=== PATIENT | female | born 1970 | race Caucasian/White ===

== ENCOUNTER 2019-07-30 16:30 | Observation (INO) | payer OTHER ==
[2019-07-30] MEDS ORDERED: FENTANYL CITR 100 MCG/2 ML ONE ×2 (17:22→17:57)
[2019-07-30] MEDS ORDERED: MIDAZOLAM HCL 2 MG/2 ML INJ ONE (17:22)
[2019-07-30] MEDS ORDERED: NA CHLORIDE 0.9% 1,000 ML ONE (17:23)
[2019-07-30] MEDS ORDERED: ADENOSINE 6 MG/ 2ML VIAL IV ONE ×2 (17:23→17:36)
--- NOTE | 2019-07-30 17:28 | RAD REPORT ---
EXAM DESCRIPTION: Matty Single View07/30/2019 5:21 pm CLINICAL HISTORY: Palpitations COMPARISON: none FINDINGS: The lungs appear clear of acute infiltrate. The heart is mildly to moderately enlarged IMPRESSION: No acute abnormalities displayed
[2019-07-30] MEDS ORDERED: METOPROLOL TARTRATE 5 MG/5 ML INJ IV ONE ×2 (17:31→17:36)
[2019-07-30 17:36] LABS: Absolute Lymphocytes (CBC) 2.5 K/uL (0.7-4.9); Basophils % 1.2 % (0-1.3); Hematocrit 45.4 % (36.0-45.0); Lymphocytes % 40.5 % (15.3-44.8); MPV 8.2 fL (7.6-11.3); RBC Red Blood Cell Count 4.86 M/uL (3.86-4.86)
[2019-07-30 17:38] LABS: Protime INR 0.9
[2019-07-30 17:57] LABS: ALT/SGPT 30 U/L (12-78); AST/SGOT 21 U/L (15-37); Alkaline Phosphatase 130 U/L (45-117); BUN Blood Urea Nitrogen 18 mg/dL (7-18); Bicarbonate 26 mmol/L (21-32); Bilirubin Direct < 0.1 mg/dL (0-0.2); Bilirubin Total 0.4 mg/dL (0.2-1.0); Glucose Level 93 mg/dL (74-106); Magnesium 2.5 mg/dL (1.8-2.4); NT PRO-BNP 290 pg/mL (<125); Potassium 3.9 mmol/L (3.5-5.1); Protein, Total 7.4 g/dL (6.4-8.2); Sodium Level 143 mmol/L (136-145); Troponin (Emerg Dept Use Only) 0.08 ng/mL (0.0-0.045)
--- NOTE | 2019-07-30 18:09 | ER ---
Nurse's Notes [facility] Name: Lila Ba Age: 49 yrs Sex: Female : 1970 Arrival Date: 07/30/2019 Time: 16:39 Bed 3 Private MD: Diagnosis: Unspecified atrial fibrillation;Palpitations;Influenza due to certain identified influenza viruses Presentation: 07/29 16:45 Chief complaint: Patient states: This morning since 0600, I felt sweaty, back and neck ca1 pains, SOB on exertion. I went to the doctor in [place] and they diagnosed me with the Flu and they did an EKG that shows A-fib. They told me to come to the ER. Denies history of A-fib, any heart problems. Coronavirus screen: The patient has NOT traveled to a country currently being monitored by the CDC within the last 14 days. The patient has NOT had contact with any known and/or suspected case of coronavirus. Ebola Screen: Patient negative for fever greater than or equal to 101.5 degrees Fahrenheit, and additional compatible Ebola Virus Disease symptoms Patient denies exposure to infectious person. Patient denies travel to an Ebola-affected area in the 21 days before illness onset. No symptoms or risks identified at this time. Initial Sepsis Screen: Does the patient meet any 2 criteria? No. Patient's initial sepsis screen is negative. Does the patient have a suspected source of infection? No. Patient's initial sepsis screen is negative. Risk Assessment: Do you want to hurt yourself or someone else? Patient reports no desire to harm self or others. Onset of symptoms was July 30, 2019. 16:45 Method Of Arrival: Ambulatory ca1 16:45 Acuity: TAN 3 ca1 17:03 Acuity: TAN 2 ph ENROLLMENT REPRESENTATIVE: 16:49 LMP N/A - control method ca1 Historical: - Allergies: 16:49 No Known Allergies; ca1 - Home Meds: 16:49 None [Active]; ca1 - PMHx: 16:49 None; ca1 - PSHx: 16:49 ; Thyroidectomy; oophorectomy; ca1 - Immunization history:: Adult Immunizations up to date, Flu vaccine is up to date. - Social history:: Smoking status: Patient denies any tobacco usage or history of. Screenin:10 Abuse screen: Denies threats or abuse. Nutritional screening: No deficits noted. em Tuberculosis screening: No symptoms or risk factors identified. Fall Risk None identified. Assessment: 17:10 General: Appears in no apparent distress. comfortable, Behavior is calm, cooperative, em Denies fever. Pain: Denies pain. Neuro: Level of Consciousness is awake, alert, obeys commands, Oriented to person, place, time, situation, Appropriate for age. Cardiovascular: Reports palpitations, shortness of breath, Denies chest pain, Heart tones S1 S2 present Capillary refill < 3 seconds Patient's skin is warm and dry. Rhythm is atrial fibrillation. Respiratory: Reports shortness of breath on exertion Airway is patent Respiratory effort is even, unlabored, Respiratory pattern is regular, symmetrical. GI: Patient currently denies nausea, vomiting. Derm: Skin is intact, is healthy with good turgor, Skin is pink, warm \T\ dry. Musculoskeletal: Capillary refill < 3 seconds, Range of motion: intact in all extremities. 17:56 Reassessment: 2 nd synchronized cardioversion at 150 J, rhythm unchanged, A-fib at 138. em 18:05 General: Appears in no apparent distress. Behavior is calm, cooperative. em Cardiovascular: Denies chest pain, Capillary refill < 3 seconds Patient's skin is warm and dry. Rhythm is atrial fibrillation. Respiratory: Airway is patent Respiratory effort is even, unlabored, Respiratory pattern is regular, symmetrical. Musculoskeletal: Capillary refill < 3 seconds. Vital Signs: 16:45 BP 112 / 79; Pulse 79; Resp 18 S; Temp 97.2(O); Pulse Ox 98% on R/A; Weight 84.82 kg ca1 (R); Height 5 ft. 4 in. (162.56 cm) (R); Pain 0/10; 16:57 Pulse 163; ca1 17:20 BP 134 / 108; Pulse 156; Resp 20; Pulse Ox 99% on R/A; em 17:23 BP 121 / 57; Pulse 164; Resp 18 S; Pulse Ox 100% on R/A; em 17:28 BP 126 / 97; Pulse 160; em 17:30 BP 108 / 79; Pulse 147; em 17:36 BP 103 / 80; Pulse 139; em 17:45 BP 95 / 75; Pulse 138; em 17:55 BP 107 / 86; Pulse 134; Resp 16 S; em 18:00 BP 100 / 87; Pulse 128; Resp 14 S; em 18:29 BP 109 / 97; Pulse 140; Resp 18; Pulse Ox 100% on R/A; em 19:31 BP 106 / 74; Pulse 135; Resp 18; Temp 97.8; Pulse Ox 100% on R/A; rv 16:45 Body Mass Index 32.10 (84.82 kg, 162.56 cm) ca1 ED Course: 16:39 Patient arrived in ED. mr 16:48 Triage completed. ca1 16:49 Arm band placed on right wrist. ca1 16:57 EKG done, by ED staff, reviewed by Koko Zamorano MD. ca1 16:59 Samanta Singh FNP-C is PHCP. kb 16:59 Koko Zamorano MD is Attending Physician. kb 17:03 Yelena Champion, RN is Primary Nurse. ph 17:10 Patient has correct armband on for positive identification. Placed in gown. Bed in low em position. Call light in reach. Adult w/ patient. painter helper sign on. Pulse ox on. NIBP on. 17:10 Initial lab(s) drawn, by me, sent to lab. Inserted saline lock: 20 gauge in right em antecubital area, using aseptic technique. Blood collected. 17:21 XRAY Chest (1 view) In Process Unspecified. EDMS 17:49 Assist provider with cardioversion (synchronized) with pads, for treatment of A fib em with 150 joules Set up for procedure. Performed by Koko Zamorano MD Monitored with wool hat hydraulicker, pulse ox, Post procedure rhythm is A fib. Patient tolerated well. 18:08 Vu Salter MD is Hospitalizing Provider. kb 19:35 IV is patent, with fluids infusing freely, with good blood return, Patient admitted, IV rv remains in place. Administered Medications: 17:20 Drug: NS 0.9% 1000 ml Route: IV; Rate: 1000 ml; Site: right antecubital; em 18:00 Follow up: IV Status: Completed infusion; IV Intake: 1000ml em 17:25 Drug: Adenosine 12 mg Route: IVP; Site: right antecubital; em 17:26 Follow up: Response: No adverse reaction; Cardiac rhythm is unchanged em 17:30 Drug: Lopressor 5 mg Route: IVP; Site: right antecubital; em 17:35 Drug: Lopressor 5 mg Route: IVP; Site: right antecubital; em 17:37 Drug: Adenosine 12 mg Route: IVP; Site: right antecubital; em 17:38 Follow up: Response: No adverse reaction; Cardiac rhythm is unchanged em 17:43 Drug: Versed 4 mg Route: IVP; Site: right antecubital; em 19:15 Follow up: Response: No adverse reaction ph 17:45 Drug: fentaNYL (PF) 50 mcg Route: IVP; Site: right antecubital; em 19:16 Follow up: Response: No adverse reaction ph 17:48 Drug: fentaNYL (PF) 50 mcg Route: IVP; Site: right antecubital; em 19:16 Follow up: Response: No adverse reaction ph 17:53 Drug: fentaNYL (PF) 50 mcg Route: IVP; Site: right antecubital; em 19:16 Follow up: Response: No adverse reaction ph 18:43 Drug: Betapace 80 mg Route: PO; em 19:15 Follow up: Response: No adverse reaction ph 18:46 Drug: Lovenox 1 mg/kg Route: Sub-Q; Site: right lower abdomen; em 19:15 Follow up: Response: No adverse reaction ph Intake: 18:00 IV: 1000ml; Total: 1000ml. em Outcome: 18:08 Decision to Hospitalize by Provider. kb 19:34 Admitted to ICU accompanied by nurse, accompanied by tech, via stretcher, room 8, with rv chart, Report called to SEDA MEDINA 19:34 Condition: good 19:34 Discharge instructions given to patient, family, Instructed on the need for admit, Demonstrated understanding of instructions. 19:35 Patient left the ED. rv Signatures: Dispatcher [employer] Samanta Pollard, PLUMBING INSPECTOR-C PLUMBING INSPECTOR-Ckb Cast Loly YanezProsper, RN RN em Yelena Champion RN CAROL ph Jeff Lazaro RN RN rv Kathleen Chung RN RN ca1 Corrections: (The following items were deleted from the chart) 19:18 17:56 Reassessment: synchronized cardioversion at 150 J, rhythm unchanged, A-fib at 138 em em
--- NOTE | 2019-07-30 18:09 | EDPHYS ---
Physician Documentation [facility] Name: Lila Ba Age: 49 yrs Sex: Female : 1970 Arrival Date: 07/30/2019 Time: 16:39 Bed 3 Private MD: ED Physician Koko Zamorano HPI: 07/29 18:08 This 49 yrs old Female presents to ER via Ambulatory with complaints of AFIB. kb 18:08 The patient presents with a history of irregular heart beat. Context: The symptoms kb occur at rest. Onset: The symptoms/episode began/occurred this morning. Duration: The patient or guardian reports a single episode. Modifying factors: The symptoms are aggravated by nothing. The symptoms are alleviated by nothing. Associated signs and symptoms: The patient has no apparent associated signs or symptoms. Severity of symptoms: At their worst the symptoms were moderate in the emergency department the symptoms are unchanged. The patient has not experienced similar symptoms in the past. The patient has been recently seen by a physician:. Pt reports she woke up with fluttering in her chest this morning, went to work and has had the same feeling throughout the day with intermittent sweating. Went to [employer] at her job and was tested for the flu which was positive. Pt states they did an EKG after that and told her she had to come to the ER for a. fib. Denies any medical history, has never felt these symptoms before. PROCESS DEVELOPMENT CHEMIST: 16:49 LMP N/A - control method ca1 Historical: - Allergies: 16:49 No Known Allergies; ca1 - Home Meds: 16:49 None [Active]; ca1 - PMHx: 16:49 None; ca1 - PSHx: 16:49 ; Thyroidectomy; oophorectomy; ca1 - Immunization history:: Adult Immunizations up to date, Flu vaccine is up to date. - Social history:: Smoking status: Patient denies any tobacco usage or history of. ROS: 18:06 Constitutional: Negative for fever, chills, and weight loss, ENT: Negative for injury, kb pain, and discharge, Neck: Negative for injury, pain, and swelling, Respiratory: Negative for shortness of breath, cough, wheezing, and pleuritic chest pain, Abdomen/GI: Negative for abdominal pain, nausea, vomiting, diarrhea, and constipation, Back: Negative for injury and pain, MS/Extremity: Negative for injury and deformity, Skin: Negative for injury, rash, and discoloration, Neuro: Negative for headache, weakness, numbness, tingling, and seizure. 18:06 Cardiovascular: Positive for palpitations, sweating. Exam: 18:06 Constitutional: This is a well developed, well nourished patient who is awake, alert, kb and in no acute distress. Head/Face: Normocephalic, atraumatic. ENT: Nares patent. No nasal discharge, no septal abnormalities noted. Tympanic membranes are normal and external auditory canals are clear. Oropharynx with no redness, swelling, or masses, exudates, or evidence of obstruction, uvula midline. Mucous membranes moist. Neck: Trachea midline, no thyromegaly or masses palpated, and no cervical lymphadenopathy. Supple, full range of motion without nuchal rigidity, or vertebral point tenderness. No Meningismus. Chest/axilla: Normal chest wall appearance and motion. Nontender with no deformity. No lesions are appreciated. Respiratory: Lungs have equal breath sounds bilaterally, clear to auscultation and percussion. No rales, rhonchi or wheezes noted. No increased work of breathing, no retractions or nasal flaring. Abdomen/GI: Soft, non-tender, with normal bowel sounds. No distension or tympany. No guarding or rebound. No evidence of tenderness throughout. Back: No spinal tenderness. No costovertebral tenderness. Full range of motion. Skin: Warm, dry with normal turgor. Normal color with no rashes, no lesions, and no evidence of cellulitis. MS/ Extremity: Pulses equal, no cyanosis. Neurovascular intact. Full, normal range of motion. Neuro: Awake and alert, GCS 15, oriented to person, place, time, and situation. Cranial nerves II-XII grossly intact. Motor strength 5/5 in all extremities. Sensory grossly intact. Cerebellar exam normal. Normal gait. 18:06 Cardiovascular: Rate: tachycardic, Rhythm: irregularly irregular, Pulses: no pulse deficits are appreciated. 18:07 ECG was reviewed by the Attending Physician. Vital Signs: 16:45 BP 112 / 79; Pulse 79; Resp 18 S; Temp 97.2(O); Pulse Ox 98% on R/A; Weight 84.82 kg ca1 (R); Height 5 ft. 4 in. (162.56 cm) (R); Pain 0/10; 16:57 Pulse 163; ca1 17:20 BP 134 / 108; Pulse 156; Resp 20; Pulse Ox 99% on R/A; em 17:23 BP 121 / 57; Pulse 164; Resp 18 S; Pulse Ox 100% on R/A; em 17:28 BP 126 / 97; Pulse 160; em 17:30 BP 108 / 79; Pulse 147; em 17:36 BP 103 / 80; Pulse 139; em 17:45 BP 95 / 75; Pulse 138; em 17:55 BP 107 / 86; Pulse 134; Resp 16 S; em 18:00 BP 100 / 87; Pulse 128; Resp 14 S; em 18:29 BP 109 / 97; Pulse 140; Resp 18; Pulse Ox 100% on R/A; em 19:31 BP 106 / 74; Pulse 135; Resp 18; Temp 97.8; Pulse Ox 100% on R/A; rv 16:45 Body Mass Index 32.10 (84.82 kg, 162.56 cm) ca1 MDM: 17:00 Patient medically screened. kb 18:10 Data reviewed: vital signs, nurses notes. Data interpreted: Pulse oximetry: on room air kb is 98 %. Interpretation: normal. Counseling: I had a detailed discussion with the patient and/or guardian regarding: the historical points, exam findings, and any diagnostic results supporting the discharge/admit diagnosis, lab results, radiology results, the need for further work-up and treatment in the hospital. Physician consultation: Joao Gonzalez MD was called at 18:10, regarding consult, patient's condition, and will see patient in unit. 18:18 Physician consultation: Vu Salter MD was contacted at 18:19, regarding admission, to the ICU, patient's condition, in the emergency department to see patient at 18:19. 19:04 ED course: Pt presented in a.fib with rvr, pt reported fluttering in chest. Denied kb chest pain, shortness of breath. Dr Zamorano was consulted and came to room as well. Discussed cardioversion with pt, risks and benefits, pt signed consent. I answered questions that the pt and spouse had. Adenosine 12mg IV given without relief. Lopressor 5mg IV x2 given with no relief. Adenosine 12mg IV given with no relief. Pt then given conscious sedation with fentanyl and versed. Synchronized cardioversion administered at 150J without change. Synchronized cardioversion administered at 150J a second time without change. Dr Gonzalez consulted at that point. Recommended starting betapase and lovenox, then admitting. 03 17:00 Order name: Basic Metabolic Panel; Complete Time: 17:59 kb 07/29 17:00 Order name: CBC with Diff; Complete Time: 17:58 kb 07/29 17:00 Order name: LFT's; Complete Time: 17:59 kb 07/29 17:00 Order name: Magnesium; Complete Time: 17:59 kb 07/29 17:00 Order name: NT PRO-BNP; Complete Time: 17:59 kb 07/29 17:00 Order name: PT-INR; Complete Time: 17:58 kb 07/29 17:00 Order name: Troponin (emerg Dept Use Only); Complete Time: 17:59 kb 07/29 17:00 Order name: XRAY Chest (1 view); Complete Time: 17:58 kb 07/29 17:27 Order name: TSH; Complete Time: 19:03 bd 07/29 17:00 Order name: EKG; Complete Time: 17:01 kb 04 17:00 Order name: Cardiac monitoring; Complete Time: 18:13 kb 04 17:00 Order name: EKG - Nurse/Tech; Complete Time: 18:13 kb 07/29 17:00 Order name: IV Saline Lock; Complete Time: 18:13 kb 07/29 17:00 Order name: Labs collected and sent; Complete Time: 18:13 kb 07/29 17:00 Order name: O2 Per Protocol; Complete Time: 18:13 kb 07/29 17:00 Order name: O2 Sat Monitoring; Complete Time: 17:15 kb 04 17:57 Order name: Conscious Sedation; Complete Time: 18:46 kb EC:07 Rate is 163 beats/min. Rhythm is irregularly irregular. QRS Delta is Normal. QRS kb interval is normal at 86 msec. QT interval is normal at 252 msec. Clinical impression: Atrial Fibrillation. Interpreted by me. Reviewed by me. Administered Medications: 17:20 Drug: NS 0.9% 1000 ml Route: IV; Rate: 1000 ml; Site: right antecubital; em 18:00 Follow up: IV Status: Completed infusion; IV Intake: 1000ml em 17:25 Drug: Adenosine 12 mg Route: IVP; Site: right antecubital; em 17:26 Follow up: Response: No adverse reaction; Cardiac rhythm is unchanged em 17:30 Drug: Lopressor 5 mg Route: IVP; Site: right antecubital; em 17:35 Drug: Lopressor 5 mg Route: IVP; Site: right antecubital; em 17:37 Drug: Adenosine 12 mg Route: IVP; Site: right antecubital; em 17:38 Follow up: Response: No adverse reaction; Cardiac rhythm is unchanged em 17:43 Drug: Versed 4 mg Route: IVP; Site: right antecubital; em 19:15 Follow up: Response: No adverse reaction ph 17:45 Drug: fentaNYL (PF) 50 mcg Route: IVP; Site: right antecubital; em 19:16 Follow up: Response: No adverse reaction ph 17:48 Drug: fentaNYL (PF) 50 mcg Route: IVP; Site: right antecubital; em 19:16 Follow up: Response: No adverse reaction ph 17:53 Drug: fentaNYL (PF) 50 mcg Route: IVP; Site: right antecubital; em 19:16 Follow up: Response: No adverse reaction ph 18:43 Drug: Betapace 80 mg Route: PO; em 19:15 Follow up: Response: No adverse reaction ph 18:46 Drug: Lovenox 1 mg/kg Route: Sub-Q; Site: right lower abdomen; em 19:15 Follow up: Response: No adverse reaction ph Disposition: 07/30 10:48 Co-signature as Attending Physician, Koko Zamorano MD I agree with the assessment and kdr plan of care. Disposition: 07/30/19 18:08 Hospitalization ordered by Vu Salter for Inpatient Admission. Preliminary diagnosis are Unspecified atrial fibrillation, Palpitations, Influenza due to certain identified influenza viruses. - Bed requested for Intensive Care Unit. - Status is Inpatient Admission. rv - Condition is Fair. - Problem is new. - Symptoms are unchanged. Critical care time excluding procedures: 07/29 18:38 Critical care time: Bedside Care: 45 minutes, Consultation: 10 minutes, Family kb Intervention: 10 minutes. Total time: 65 minutes Signatures: Dispatcher [employer] Samanta Pollard FNP-C FNP-Ckb Rittger Koko, MD MD [facility] Prosper Yanez, RN RN em Clementine Varghese, RN RN tl1 Jeff Lazaro, RN RN rv Kathleen Chung, RN RN [facility] Yelena Champion RN ph Corrections: (The following items were deleted from the chart) 18:08 18:08 Hospitalization Ordered by Vu Salter MD for Inpatient Admission. Preliminary kb diagnosis is Unspecified atrial fibrillation; Palpitations; Influenza due to certain identified influenza viruses. Bed requested for Intensive Care Unit. Status is Inpatient Admission. Condition is Stable. Problem is new. Symptoms are unchanged. kb 19:23 18:08 07/30/2019 18:08 Hospitalization Ordered by Vu Salter MD for Inpatient tl1 Admission. Preliminary diagnosis is Unspecified atrial fibrillation; Palpitations; Influenza due to certain identified influenza viruses. Bed requested for Intensive Care Unit. Status is Inpatient Admission. Condition is Fair. Problem is new. Symptoms are unchanged. kb 19:35 19:23 07/30/2019 18:08 Hospitalization Ordered by Vu Salter MD for Inpatient rv Admission. Preliminary diagnosis is Unspecified atrial fibrillation; Palpitations; Influenza due to certain identified influenza viruses. Bed requested for Intensive Care Unit. Status is Inpatient Admission. Condition is Fair. Problem is new. Symptoms are unchanged. tl1
[2019-07-30] MEDS ORDERED: SOTALOL HCL 80 MG TAB ONE (18:41)
[2019-07-30] MEDS ORDERED: ENOXAPARIN 80 MG/0.8 ML SQ ONE (18:42)
[2019-07-30] MEDS ORDERED: METOPROLOL TARTRATE 5 MG/5 ML INJ IV PRN (19:34)
[2019-07-30] MEDS: OSELTAMIVIR 75 MG CAP PO SCH ×2 (19:34→21:29)
[2019-07-30] MEDS ORDERED: ENOXAPARIN 100 MG/ML SYR SQ SCH (21:00)
[2019-07-30] MEDS: NA CHLORIDE 0.9% 1,000 ML IV SCH (21:15)
--- NOTE | 2019-07-31 00:55 | HP ---
Date of Admission: 07/30/2019 Presenting Complaint: Weakness and exertional shortness of breath. History Of Present Illness: Ms. Lila Ba is a 49-year-old female with no significant past medical history, who developed weakness and increased diaphoresis since the last 1 day and had gone to an outside physician where she was diagnosed with the flu, but she is unsure of which type. EKG in the office also showed patient was in atrial fibrillation and she was sent to the emergency ro om. On arrival in the emergency room, the patient was noted to be in atrial fibrillation with heart rate up to the 140. Initial blood pressure was 106/74, blood pressure later had transiently dropped to 95 /75. The patient was given initial adenosine 12 mg with no response x2 as well as metoprolol 5 mg x2 . She was cardioverted with no change in rhythm. She was subsequently given sotalol 80 mg p.o. 1 ho ur after cardioversion. The patient subsequently has converted to sinus rhythm now. She denies any chest pain. She denies having any palpitations. She denies any recent travel. She denies any cough . The patient states she does not think she actually had the flu, but although she has a co-worker [place] has been coughing and was recently diagnosed with the influenza recently. She denies any fever or chills. She admits 2 glasses of wine 4 days a week use, but denies any heavy drinking. There is no personal or family history of any cardiac problems. Both parents are still alive and well. Past Medical History: Significant for thyroid nodule status post partial thyroidectomy in 2002, with no followup, but states her regular TSH has been normal. Allergies: NO KNOWN DRUG ALLERGIES. Home Medications: None. Family History: Both parents are alive and well. Past Surgical History: Includes and oophorectomy as well as partial thyroidectomy. 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 She is . She denies any tobacco use, occasional alcohol use as noted above. Review of Systems: All systems reviewed x14 were negative except as mentioned above. Physical Examination: Current Vitals: Blood pressure of 116/74, pulse of 66, respiratory rate of 18, O2 saturation is 98 o n room air. General: Slightly overweight, middle-aged female, calm, not in any distress. HEENT: Head is atraumatic, normocephalic. Pupils are equal and reactive to light. Extraocular cash r movement intact. Neck: No JVD. No carotid bruit. Respiratory: Good air entry. No crepitations. No wheeze. Cardiovascular: S1, S2. Rate and rhythm regular. No murmur. No chest wall tenderness. GI: Abdomen full, soft, nontender. Bowel sounds positive. : Deferred. Rectal: Deferred. Extremities: No pedal edema. No calf tenderness. Neuro: Patient is alert, conversant. No neurological focal motor deficit. Laboratory Data: Initial EKG shows atrial fibrillation. Repeat EKG shows sinus rhythm, as noted in HPI. Chest x-ray shows no acute infiltrate. Rest of labs, WBC 6.2, hemoglobin 15.7, neutrophils 46, INR 0.9, platelet 242. Sodium 143, potassium 3.9, chloride 110, BUN 18, creatinine 1.0, magnesium 2 .5. ProBNP of 290. TSH 1.29. AST and alkaline phosphatase, normal. Impression: 1.Paroxysmal atrial fibrillation, unclear etiology. 2.Presumed influenza infection. Plan: 1.The patient admitted to the ICU. Cardiology has been consulted. We will start patient on gentle IV fluids given elevated hematocrit. Note, patient does not have any clinical evidence of influenza. We will obtain repeat influenza swab for A and B. We will start patient on empiric Tamiflu. We wi ll discontinue if flu swab negative. Since patient is in sinus rhythm, we will continue telemonitori ng now. Cardiology to evaluate patient in a.m. We will have to schedule patient for echocardiogram. Etiology of atrial fibrillation may be due to occasional alcohol intake. The patient advised to av oid alcohol intake for now. Follow serial set of cardiac enzymes. DVT prophylaxis. We will do Love nox 1 mg/kg q.12h for now. 2.Advanced directives. Patient is full code. Total time spent in evaluation of patient and discussion with patient and family greater than 60 vidal sheela. EO/MODL Voice ID: [id number]
[2019-07-31] MEDS: ACETAMINOPHEN 500 MG TAB PO PRN ×2 (03:49→08:39)
[2019-07-31 04:58] LABS: Absolute Lymphocytes (CBC) 2.6 K/uL (0.7-4.9); Basophils % 1.2 % (0-1.3); Hematocrit 39.7 % (36.0-45.0); Lymphocytes % 38.5 % (15.3-44.8); MPV 8.1 fL (7.6-11.3)
[2019-07-31 05:19] LABS: Albumin 3.3 g/dL (3.4-5.0); Bilirubin Total 0.7 mg/dL (0.2-1.0); Magnesium 2.1 mg/dL (1.8-2.4); Phosphorus 3.4 mg/dL (2.5-4.9); Potassium 3.9 mmol/L (3.5-5.1); Protein, Total 5.9 g/dL (6.4-8.2)
[2019-07-31] MEDS ORDERED: ENOXAPARIN 100 MG/ML SYR SQ SCH (06:00)
[2019-07-31] MEDS ORDERED: SOTALOL HCL 80 MG TAB PO SCH (06:00)
[2019-07-31] MEDS: NA CHLORIDE 0.9% 1,000 ML IV SCH ×2 (06:02→09:42)
[2019-07-31 06:13] VITALS: BMI 32.2
[2019-07-31] MEDS ORDERED: POTASSIUM 25 MEQ EFFERV TAB PO ONE (08:00)
[2019-07-31 09:15] VITALS: BP 108/76
[2019-07-31 09:30] VITALS: TEMP 98.6
--- NOTE | 2019-07-31 11:38 | EKG ---
Test Date: 2019-07-30 Test Time: 20:19:22 Mill Stenciler: RT Mckeon MEASUREMENT RESULTS: Intervals: Rate: 60 ME: 184 QRSD: 84 QT: 408 QTc: 408 [place]: P: 38 ME: 184 QRS: 74 T: 57 INTERPRETIVE STATEMENTS: Normal sinus rhythm Possible Left atrial enlargement Borderline ECG Compared to ECG 07/30/2019 18:26:26 Atrial fibrillation no longer present Right-axis deviation no longer present Electronically Signed On 07-31-19 11:36:46 ALEMITE OPERATOR by Mikhail Kramer
--- NOTE | 2019-07-31 11:39 | EKG ---
Test Date: 2019-07-30 Test Time: 16:56:58 Digital Project Coordinator: BRANDT MEASUREMENT RESULTS: Intervals: Rate: 163 [place]: QRSD: 86 QT: 252 QTc: 414 [place]: P: ND: QRS: 86 T: 11 INTERPRETIVE STATEMENTS: Atrial fibrillation with rapid ventricular response with premature ventricular or aberrantly conducted complexes Nonspecific ST abnormality, probably digitalis effect Abnormal ECG No previous ECG available for comparison Electronically Signed On 07-31-19 11:36:58 OFFICE RECEPTIONIST by Mikhail Kramer
--- NOTE | 2019-07-31 11:39 | EKG ---
Test Date: 2019-07-30 Test Time: 18:26:26 Machine Tool Designer: DERIAN MEASUREMENT RESULTS: Intervals: Rate: 144 SC: QRSD: 76 QT: 304 QTc: 470 Gordon: P: SC: QRS: 90 T: 38 INTERPRETIVE STATEMENTS: Atrial fibrillation with rapid ventricular response Rightward axis Abnormal ECG Compared to ECG 07/30/2019 16:56:58 Right-axis deviation now present Ventricular premature complex(es) no longer present ST (T wave) deviation no longer present Electronically Signed On 07-31-19 11:36:52 NUCLEAR PHYSICS TEACHER by Mikhail Kramer
[2019-07-31 11:58] VITALS: O2SAT 100
--- NOTE | 2019-07-31 12:00 | ECHO ---
HEIGHT: 5 ft 4 in WEIGHT: 187 lb 9.6 oz DATE OF STUDY: 07/31/[address]: Marycruz Kuo MD 2-DIMENSIONAL: YES M.MODE: YES DOPPLER: YES COLOR FLOW: YES TDS: NO PORTABLE: NO DEFINITY: NO BUBBLE STUDY: NO DIAGNOSIS: ATRIAL FIBRILLATION, ASSESS FOR VALVE DISEASE CARDIAC HISTORY: CATHERIZATION: NO SURGERY: NO PROSTHETIC VALVE: NO PACEMAKER: NO MEASUREMENTS (cm) DIASTOLIC (NORMALS) SYSTOLIC (NORMALS) IVSd 1.1 (0.6-1.2) LA Diam 3.6 (1.9-4.0) LVEF 67% LVIDd 4.1 (3.5-5.7) LVIDs 2.6 (2.0-3.5) %FS 37% LVPWd 1.2 (0.6-1.2) Ao Diam 2.8 (2.0-3.7) 2 DIMENSIONAL ASSESSMENT: RIGHT ATRIUM: NORMAL LEFT ATRIUM: NORMAL RIGHT VENTRICLE: NORMAL LEFT VENTRICLE: NORMAL TRICUSPID VALVE: NORMAL MITRAL VALVE: NORMAL PULMONIC VALVE: NORMAL AORTIC VALVE: NORMAL PERICARDIAL EFFUSION: NONE AORTIC ROOT: NORMAL LEFT VENTRICULAR WALL MOTION: NORMAL DOPPLER/COLOR FLOW: NORMAL COMMENTS: NORMAL 2D ECHOCARDIOGRAM WITH DOPPLER. NO WALL MOTION ABNORMALITY. NO EFFUSION. TECHNOLOGIST: Mariella MORRIS
--- NOTE | 2019-07-31 13:53 | PN ---
Date of Progress Note: 07/31/2019 Subjective: Patient seen and examined. Chart reviewed and case discussed with RN. Patient is doing significantly better, now back in sinus rhythm. No acute events overnight. Medications: List reviewed. Physical Examination: Vital Signs: Temperature 98.6, heart rate 55, blood pressure 108/76, respirations 17, O2 97% on room air. General: Awake, alert, oriented x3, not in any acute distress, obese female. CV: S1 and S2. Sinus bradycardia. Peripheral pulses present. Respiratory: Moving air well bilaterally. No wheezing or stridor. No use of accessory muscles. Gastrointestinal: Abdomen is soft, nontender, nondistended. Positive bowel sounds. Extremities: No clubbing, cyanosis, or edema. No calf tenderness. Neuro: Cranial nerves 2 through 12 intact grossly. No focal neurological deficits. Speech is maxine l. Skin: No rashes. Normal skin turgor. Laboratory Data: Sodium 141, potassium 3.9, chloride 109, CO2 of 28, BUN 14, creatinine 0.89, glucos e 98, calcium 8.3, phosphorus 3.4, magnesium 2.1, albumin 3.3. WBC 6.8, H and H 13.8 and 39.7, plate lets 190, neutrophils 49%. Influenza screen is negative. Assessment: 49-year-old female with: 1.Paroxysmal atrial fibrillation, unclear etiology. Patient was refractory to adenosine x2 and card ioversion. Patient was then started on sotalol, has received 2 doses so far, now in sinus rhythm, cu rrently on Lovenox. We will switch over to Eliquis. Cardiology consultation has been obtained. Ech ocardiogram is pending at this time. We will continue with rate control. 2.Elevated troponin level, likely secondary to atrial fibrillation. 3.Obesity. BMI 32.2. Counseled. 4.Presumed influenza infection. Influenza screen at this facility is negative. Patient does not mace ve any fever, chills. No signs or clinical symptoms. Plan: We will step down from ICU. Patient is on empiric Tamiflu. Okay to discontinue. The patient does have occasional alcohol intake, which may be a cause of her atrial fibrillation. Patient was c ounseled. She voiced understanding. SA/MODL Voice ID: [id number] Report ID: [id number]
--- NOTE | 2019-07-31 19:14 | CON ---
Date of Consultation: 07/31/[address] Salter service on 07/30/2019. I saw the patient on 07/31/2019. Reason For Consultation: New-onset atrial fibrillation. History Of Present Illness: Ms. Ba is a 49-year-old female. Has no previous past medical histo ry. Came in with new-onset atrial fibrillation that woke her up from sleep with some chest pain. De nied any nausea, vomiting. Has some diaphoresis and shortness of breath with it. Denied any PND, or thopnea, pedal edema, or syncope. Denied any fever or chills. Denied any previous cardiac history. Past Medical History: Negative. Allergies: NONE. Review of Systems: Negative. Social History: Positive only for occasional coffee, occasional alcohol. No tobacco use. Family History: Negative. Medications: At home are none. Physical Examination: General: When I saw her, she was in a sinus bradycardia. No acute distress. Vital Signs: Stable. Afebrile. HEENT: Negative. Neck: Supple. No bruit. Chest: Clear to auscultation and percussion. Cardiac: Revealed a regular rhythm and rate. No murmurs, gallops, or rubs. Abdomen: Benign. Extremities: Revealed no clubbing, cyanosis, or edema. Diagnostic Data: Her troponin was positive at 0.08. The rest of it was normal. Impression And Plan: Atrial fibrillation, new onset, resolved on Betapace to sinus rhythm. Echocard iogram is normal. Her troponin was slightly positive. Because of atrial fibrillation, she also had some chest pain with diaphoresis and shortness of breath. She is asymptomatic today. I suggested we send her home on Betapace and anticoagulant. I will see her in the office soon after an MPI. In th e next 3 to 6 months, she does not have any more atrial fibrillation. I will switch her to an aspiri n as she has a very low CHADS score. Case was discussed with her, her , and Dr. Salter. PAT/JAMEL Voice ID: [id number] Report ID: [id number]
--- NOTE | 2019-08-02 00:15 | DS ---
Date of Discharge: 07/31/2019 Consultants: Dr. Kramer with Cardiology. Discharge Diagnoses: 1.Paroxysmal atrial fibrillation. 2.Elevated troponin level. 3.Obesity, BMI 32.2. Hospital Course: Patient is a 49-year-old female with no significant past medical history, came in w ith weakness, diaphoresis, found to have atrial fibrillation. Patient had been diagnosed with influe nza at her workplace, however at this facility the influenza screen was negative. She did not have a ny fever, chills, or flu-like symptoms other than the generalized malaise. Patient was given empiric Tamiflu, however, was discontinued due to her negative flu screen. Patient was given adenosine x2 a nd was cardioverted twice, however continued in atrial fibrillation with a rapid rate in the 160s. T he patient was then started on Betapace. She was also started on oral anticoagulation. Patient was seen by Dr. Kramer with Cardiology. Echocardiogram was done, which showed EF of 67%. No wall motio n abnormality was seen. Patient was then back in sinus rhythm, she was feeling well. There was no c hest pain or further shortness of breath. Patient was counseled regarding her alcohol use and to min imize her alcohol use. Patient was then cleared for discharge by Cardiology standpoint, sent home in a stable condition. Activity: As tolerated. Medications: As per medication reconciliation list. Followup: Follow up with primary care physician in 2-3 days. Follow up with director medical writing, Dr. Tejinder guerra in 2 weeks. Return to ER for worsening condition. Diet: Heart healthy. For physical exam findings, please see progress note dictated on day of discharge. /JAMEL Voice ID: [id number] Report ID: [id number]
== END 2019-07-31 12:40 | disposition home or self-care (01) ==
LOC: ER 16:30 → INTOOBSV 18:35 → ERHOLD 18:35 → 3RD-ICU 19:31 → 4TH 07-31 09:15
PROVIDERS: ADMIT Family Medicine; ATTEND Family Medicine
DX: I48.0 Paroxysmal atrial fibrillation (principal); R79.89 Other specified abnormal findings of blood chemistry; E66.9 Obesity, unspecified; Z68.32 Body mass index [BMI] 32.0-32.9, adult; Z72.89 Other problems related to lifestyle
CPT/HCPCS: 92960; 96361; 93005 ×3; 93306; 85025 ×2; 80048; 36415; 83735 ×2; 84100; 85610; 80076; 84443; 84484; 80053; 83880; 87804 ×2; 71045; 94760 ×2; 96375; 96372; 96374; 99285; J0153 ×2; J2250; J3010 ×2; J1650 ×2; J7030 ×4; G0378 ×3